=== PATIENT | male | born 1990 ===

== ENCOUNTER 2019-02-16 22:31 | Emergency (ER) | payer OTHER ==
[2019-02-16 22:58] VITALS: BMI 31.9
[2019-02-16 23:27] VITALS: RESP 18
[2019-02-16] MEDS ORDERED: cefTRIAXone (Rocephin) 250 mg Inj IM STA (23:39)
--- NOTE | 2019-02-16 23:47 | ED PDOC ---
Arrival/HPI - General Chief Complaint: Male Genitourinary Time Seen by Provider: 02/16/19 23:16 Historian: Patient - History of Present Illness Narrative History of Present Illness (Text): 02/16/19 23:49 28 year old male, with past medical history of STDs, presents to emergency department for dysuria for the past few days. Patient reports being sexually active without any protection. At triage, patient mentioned rash to penis but at bedside, he denies rash and reports irritation to tip of penis. Patient denies any fevers, abdominal pain, or any other complaints. Time/Duration: Other (last few days ) Symptom Onset: Gradual Symptom Course: Unchanged Activities at Onset: Light Context: Home Past Medical History - Provider Review Nursing Documentation Reviewed: Yes - Musculoskeletal/Rheumatological Other/Comment: L Leg FX s/p ORIF 2008 - Genitourinary/Gynecological Hx Sexually Transmitted Diseases: Yes - Psychiatric Hx Substance Use: No - Surgical History Hx Orthopedic Surgery: Yes (LL leg) Other/Comment: L Leg ORIF secondary to Leg fx - Suicidal Assessment Feels Threatened In Home Enviroment: No Family/Social History - Physician Review Nursing Documentation Reviewed: Yes Family/Social History: Unknown Family HX Smoking Status: VAPE Hx Alcohol Use: Yes Frequency of alcohol use: Socially Hx Substance Use: No Allergies/Home Meds Allergies/Adverse Reactions: Allergies No Known Allergies Allergy (Verified 09/16/16 11:00) Review of Systems - Physician Review All systems were reviewed & negative as marked: Yes - Review of Systems Constitutional: absent: Fevers Respiratory: absent: SOB, Cough Cardiovascular: absent: Chest Pain Gastrointestinal: absent: Abdominal Pain, Diarrhea, Nausea Genitourinary Male: Dysuria, Other (irritation to tip of penis ) Musculoskeletal: absent: Back Pain, Neck Pain Skin: absent: Rash Neurological: absent: Headache, Dizziness Physical Exam Vital Signs Reviewed: Yes Vital Signs Temp Pulse Resp BP Pulse Ox 02/16/19 23:28 98.9 F 78 18 138/70 100 02/16/19 22:59 99.1 F 80 18 149/85 98 Temperature: Afebrile Blood Pressure: Normal Pulse: Regular Respiratory Rate: Normal Appearance: Positive for: Well-Appearing, Non-Toxic, Comfortable Pain Distress: None Mental Status: Positive for: Alert and Oriented X 3 - Systems Exam Head: Present: Atraumatic, Normocephalic Pupils: Present: PERRL Extroacular Muscles: Present: EOMI Conjunctiva: Present: Normal Mouth: Present: Moist Mucous Membranes Neck: Present: Normal Range of Motion Respiratory/Chest: Present: Clear to Auscultation, Good Air Exchange. No: Respiratory Distress, Accessory Muscle Use Cardiovascular: Present: Regular Rate and Rhythm, Normal S1, S2. No: Murmurs Abdomen: No: Tenderness, Distention, Peritoneal Signs Genitourinary Male: Present: Erythema (mild errythema to distal urethra), Other (no rashes ) Back: Present: Normal Inspection Upper Extremity: Present: Normal Inspection. No: Cyanosis, Edema Lower Extremity: Present: Normal Inspection. No: Edema Neurological: Present: GCS=15, CN II-XII Intact, Speech Normal Skin: Present: Warm, Dry, Normal Color. No: Rashes Psychiatric: Present: Alert, Oriented x 3, Normal Insight, Normal Concentration Medical Decision Making ED Course and Treatment: 02/17/19 00:18 Impression: 28 year old male presents to emergency department for dysuria for the past few days. Plan: -- Labs -- Urinalysis -- Reassess and disposition Prior Visits: Notes and results from previous visits were reviewed. Progress Notes: Patient agrees to STD empiric treatment, and wishes to be notified of the results. - Medication Orders Current Medication Orders: Discontinued Medications Azithromycin (Zithromax) 1,000 mg PO STAT STA; Protocol Stop: 02/16/19 23:40 Ceftriaxone Sodium (Rocephin) 250 mg IM STAT STA; Protocol Stop: 02/16/19 23:40 - Scribe Statement The provider has reviewed the documentation as recorded by the Scribe Peter Elizabeth All medical record entries made by the Scribe were at my direction and personally dictated by me. I have reviewed the chart and agree that the record accurately reflects my personal performance of the history, physical exam, medical decision making, and the department course for this patient. I have also personally directed, reviewed, and agree with the discharge instructions and disposition. Disposition/Present on Arrival - Present on Arrival Any Indicators Present on Arrival: No History of DVT/PE: No History of Uncontrolled Diabetes: No Urinary Catheter: No History of Decub. Ulcer: No History Surgical Site Infection Following: None - Disposition Have Diagnosis and Disposition been Completed?: Yes Diagnosis: Screen for STD (sexually transmitted disease) Disposition: HOME/ ROUTINE Disposition Time: 22:00 Condition: STABLE Discharge Instructions (ExitCare): Urethritis, Screening for Sexually Transmitted Infections Referrals: Santo Webster MD [Staff Provider] - Follow up with primary Forms: [employer] (Slovenian)
[2019-02-17 00:18] LABS: URINE BILIRUBIN NEGATIVE (NEGATIVE); URINE BLOOD NEGATIVE (NEGATIVE); URINE GLUCOSE (UA) NEGATIVE (NEGATIVE); URINE LEUKOCYTE ESTERASE NEGATIVE Leu/uL (NEGATIVE); URINE PROTEIN TRACE mg/dL (<30 mg/dL); URINE UROBILINOGEN 0.2 E.U./dL (<1 E.U./dL)
[2019-02-17 00:20] LABS: URINE APPEARANCE CLEAR (CLEAR); URINE COLOR YELLOW (YELLOW)
[2019-02-17 00:42] VITALS: BP 149/85; PULSE 80; TEMP 99.1; O2SAT 98
[2019-02-17 00:47] LABS: URINE BACTERIA SMALL /hpf; URINE EPITHELIAL CELLS 0 - 2 /hpf (0-5)
== END 2019-02-17 | disposition home or self-care (01) ==
LOC: ED 22:31
DX: Z11.3 Encounter for screening for infections with a predominantly sexual mode of transmission (principal)
CPT/HCPCS: 81001; 87086; 96372; 99283; J0696